=== PATIENT | female | born 1980 ===

== ENCOUNTER 2019-05-06 00:15 | Outpatient (CLI) | payer MEDICAID ==
[2019-05-06] MEDS ORDERED: TERBUTALINE 1 MG/1 ML INJ SUB-Q ONE (02:11)
--- NOTE | 2019-05-06 03:43 | Ultrasound Report ---
ULTRASOUND OBSTETRIC Indication: r/o abruption Findings: There is a single, living intrauterine cephalic presentation.. No evidence of placenta abruption or placenta previa. heart rate is 145 The ovaries are normal. There is no free fluid. Impression: Single, living intrauterine -cephalic presentation without definite evidence of placenta abr uption Signer Name: Noam Singer MD Signed: 05/06/2019 3:38 AM Workstation Name: [email or web address]
[2019-05-06 06:01] LABS: Mucus,Urine FEW /HPF
[2019-05-06 06:33] LABS: Bilirubin,Urine NEG (Negative); Blood,Urine NEG (Negative); Color,Urine Yellow (Yellow); Protein,Urine <15 mg/dL mg/dL (Negative); Urobilinogen,Urine < 2.0 mg/dL (<2.0)
== END 2019-05-06 06:49 | disposition home or self-care (01) ==
LOC: TRG 00:15
PROVIDERS: ATTEND Obstetrics & Gynecology
DX: O26.893 Other specified pregnancy related conditions, third trimester (principal); Z3A.36 36 weeks gestation of pregnancy
CPT/HCPCS: 76815; 81001; J3105

== ENCOUNTER 2019-05-16 12:24 | Outpatient (CLI) | payer MEDICAID ==
[2019-05-16] MEDS ORDERED: LACTATED RINGERS 500 ML IV ONE (12:31)
[2019-05-16 13:29] LABS: Bacteria,Urine 1+ /HPF (Negative); Bilirubin,Urine NEG (Negative); Blood,Urine NEG (Negative); Mucus,Urine 2+ /HPF
[2019-05-16 13:30] LABS: Color,Urine Yellow (Yellow)
[2019-05-16] MEDS ORDERED: LACTATED RINGERS 1,000 ML IV ONE (13:33)
[2019-05-16 13:54] LABS: Hematocrit 38.2 % (30.3-42.9); Hemoglobin 12.9 gm/dl (10.1-14.3); Mean Corpuscular HGB Conc 34 % (30-34); Mean Corpuscular Volume 93 fl (79-97); Platelet Count 204 K/mm3 (140-440); Red Blood Count 4.13 M/mm3 (3.65-5.03); Red Cell Distribution Width 14.1 % (13.2-15.2)
[2019-05-16 14:10] LABS: Alanine Aminotransferase 9 units/L (7-56); Uric Acid 5.4 mg/dL (3.5-7.6)
[2019-05-16 14:24] VITALS: BP 138/81
== END 2019-05-16 15:28 | disposition home or self-care (01) ==
LOC: TRG 12:24 → LD 14:41 → TRG 15:28
PROVIDERS: ATTEND Obstetrics & Gynecology
DX: O13.1 Gestational [pregnancy-induced] hypertension without significant proteinuria, first trimester (principal); O24.419 Gestational diabetes mellitus in pregnancy, unspecified control; O47.03 False labor before 37 completed weeks of gestation, third trimester; O09.523 Supervision of elderly multigravida, third trimester; Z3A.36 36 weeks gestation of pregnancy
CPT/HCPCS: 36415; 81001; 82565; 83615; 84450; 84460; 84550; 85027; 96360; 96361; J7120

== ENCOUNTER 2019-05-24 03:57 | Inpatient (IN) | payer MEDICAID ==
[2019-05-24] MEDS ORDERED: LACTATED RINGERS 2,000 ML ONE (04:33)
[2019-05-24] MEDS: LACTATED RINGERS 1,000 ML IV SCH ×2 (04:44→06:00)
[2019-05-24] MEDS ORDERED: METOCLOPRAMIDE 10 MG/2 ML INJ IV ONE (05:11)
[2019-05-24] MEDS ORDERED: BICITRA ORAL LIQD 30ML PO ONE (05:11)
[2019-05-24] MEDS ORDERED: FAMOTIDINE 20 MG/2 ML INJ IV ONE (05:11)
--- NOTE | 2019-05-24 05:19 | History and Physical Report ---
<JUMA HEREDIA - Last Filed: 05/24/19 05:44> History of Present Illness Date of examination: 05/24/19 Date of admission: 05/24/2019 Chief complaint: Leaking of water from vagina. History of present illness: 38 year old female presents with leaking of water since 03:50 this am today. Patient reports active movement. Patient received care at [facility] and [facility] and records are available. LMP 08/23/2018. EDC 06/09/2019 (confirmed by US). significant for the following: AMA, gestational diabetes (on Glyburide), marginal cord insertion, previous section times 2. labs are as follows: O+, antibody screen negative, rubella immune, pap negative, hepatitis B surface antigen negative, RPR nonreactive, HIV negative, gonorrhea negative, chlamydia negative, 1 hour sugar test 157, 3 hour OGTT abnormal (121, 262, 234, 195). Past History Past Medical History: other (obesity, bartholins gland abscess ) Past Surgical History: section [facility] History: denies: abnormal PAP smear, chlamydia, gonorrhea, hepatitis B, herpes, HIV, syphilis, trichomonas Family/Genetic History: diabetes Social history: , lives with family, full code. denies: smoking, alcohol abuse, prescription drug abuse, IV drug use - Obstetrical History Expected Date of Delivery: 06/09/19 Actual Gestation: 37 Week(s) 5 Day(s) : 4 Para: 2 Hx # Term Pregnancies: 2 Number of Pregnancies: 0 Spontaneous Abortions: 1 Induced : 0 Number of Living Children: 2 Medications and Allergies Allergies Allergy/AdvReac Type Severity Reaction Status Date / Time apple Allergy Swelling Verified 05/06/19 02:18 Active Meds: Active Medications Citric Acid/Sodium Citrate (Bicitra) 30 ml PO ONCE ONE Stop: 05/24/19 05:12 Famotidine (Pepcid) 20 mg IV ONCE ONE Stop: 05/24/19 05:12 Oxytocin/Sodium Chloride (Pitocin/Ns 20 Unit/1000ml Drip) 20 units in 1,000 mls @ 0 mls/hr IV TITR JOHN Lactated Ringer's (Lactated Ringers) 1,000 mls @ 2,250 mls/hr IV PREOP JOHN Stop: 05/25/19 06:27 Metoclopramide HCl (Reglan) 10 mg IV ONCE ONE Stop: 05/24/19 05:12 Review of Systems All systems: negative (leaking of water and contractions) - Vital Signs Vital signs: Vital Signs Pulse BP 80 158/90 05/24/19 04:58 05/24/19 04:58 Temp Pulse Resp BP Pulse Ox 80 158/90 05/24/19 04:58 05/24/19 04:58 - Physical Exam Abdomen: Positive: normal appearance, soft. Negative: distention, tenderness, guarding, rigidity Genitourinary (Female): Positive: normal external genitalia, normal perenium. Negative: perineal/vulvar lesions Vagina: Positive: normal moisture Uterus: Positive: enlarged (S>D). Negative: tender Anus/Rectum: Positive: normal perianal skin Extremities: Positive: normal. Negative: tenderness, edema - Obstetrical FHR: category 1 Uterine Contraction Monitor Mode: External Cervical Dilatation: 0.5 Cervical Effacement Percentage: 20 station: out of pelvis Results All other labs normal. Assessment and Plan A: at 37 weeks, 5 days gestation. Previous section times 2. Spontaneous rupture of membranes. Contractions. Gestational diabetes. Obesity. P: Admit. Continuous EFM. Spoke with Dr. Amaya re: patient. Dr. Amaya states he is coming in to perform repeat section. <DEBBIE AMAYA - Last Filed: 05/24/19 06:28> Medications and Allergies Active Meds: Active Medications Fentanyl (Sublimaze) 100 mcg IV ONCE ONE Stop: 05/24/19 06:20 Oxytocin/Sodium Chloride (Pitocin/Ns 20 Unit/1000ml Drip) 20 units in 1,000 mls @ 0 mls/hr IV TITR JOHN Lactated Ringer's (Lactated Ringers) 1,000 mls @ 2,250 mls/hr IV PREOP JOHN Stop: 05/25/19 06:27 Last Admin: 05/24/19 06:00 Dose: 2,250 mls/hr Documented by: Cefazolin Sodium (Ancef/Sterile Water 2 Gm/20 Ml) 2 gm in 20 mls @ 80 mls/hr IV PREOP NR; Protocol Stop: 05/25/19 05:59 - Vital Signs Vital signs: Vital Signs Pulse BP 80 158/90 05/24/19 04:58 05/24/19 04:58 Temp Pulse Resp BP Pulse Ox 70 149/82 97 05/24/19 06:25 05/24/19 05:53 05/24/19 06:25 Results Result Diagrams: 05/24/19 04:44 Abnormal lab results 05/24/19 Range/Units 04:44 [place] % (Auto) 7.8 H (0.0-7.3) % All other labs normal. Assessment and Plan Pt seen and consented for surgery. All questions answered.
[2019-05-24 06:00] LABS: Basophils % (Auto) 0.3 % (0.0-1.8); Eosinophils # (Auto) 0.1 K/mm3 (0.0-0.4); Eosinophils % (Auto) 0.7 % (0.0-4.3); Hematocrit 40.2 % (30.3-42.9); Hemoglobin 13.6 gm/dl (10.1-14.3); Lymphocytes # (Auto) 2.4 K/mm3 (1.2-5.4); Lymphocytes % (Auto) 29.5 % (13.4-35.0); Mean Corpuscular HGB Conc 34 % (30-34); Mean Corpuscular Volume 93 fl (79-97); Monocytes # (Auto) 0.6 K/mm3 (0.0-0.8); Monocytes % (Auto) 7.8 % (0.0-7.3); Platelet Count 197 K/mm3 (140-440); Red Blood Count 4.33 M/mm3 (3.65-5.03); Red Cell Distribution Width 14.2 % (13.2-15.2)
[2019-05-24] MEDS ORDERED: OXYTOCIN 20 UNIT/1000ML DRIP 20 UNITS/1,000 ML BAG IV SCH ×2 (06:00→09:00)
[2019-05-24] MEDS ORDERED: ceFAZolin/Water 2 GM/20 ML 2 GM/20 ML SYRINGE IV NR (06:00)
[2019-05-24] MEDS ORDERED: fentaNYL 100 MCG/2 ML INJ IV ONE (06:19)
[2019-05-24] MEDS ORDERED: DEXMEDETOMIDINE 200 MCG/2 ML VIAL IV ONE (07:19)
[2019-05-24] MEDS ORDERED: ONDANSETRON 4 MG/2 ML INJ ONE (07:19)
[2019-05-24] MEDS ORDERED: ceFAZolin/STERILE WATER 2 GM/20 ML SYRINGE IV ONE (07:40)
[2019-05-24] MEDS ORDERED: PHENYLEPHRINE/NS 1,000 MCG/10 ML SYRINGE (OR USE) IV ONE (08:04)
[2019-05-24] MEDS ORDERED: KETOROLAC 30 MG/1 ML INJ ONE (08:24)
[2019-05-24] MEDS ORDERED: NALOXONE 0.4 MG/1 ML INJ IV PRN ×2 (08:59→09:18)
[2019-05-24] MEDS ORDERED: WITCH HAZEL/ GLYCERIN PAD TP PRN (08:59)
[2019-05-24] MEDS ORDERED: LANOLIN/ZINC/DIMETHICONE (LANSINOH) 7 GM TP PRN (08:59)
[2019-05-24] MEDS ORDERED: D5W/LACTATED RINGERS 1,000 ML IV SCH (09:00)
[2019-05-24] MEDS ORDERED: MAGNESIUM HYDROXIDE (MOM) ORAL LIQD UDC PO PRN (09:02)
[2019-05-24] MEDS ORDERED: HYDROCORTISONE 25 MG RECTAL SUPP PR PRN (09:02)
[2019-05-24] MEDS ORDERED: SENNOSIDES 8.6 MG TAB PO PRN (09:02)
[2019-05-24] MEDS ORDERED: ONDANSETRON 4 MG/2 ML INJ IV PRN ×2 (09:02→09:18)
[2019-05-24] MEDS ORDERED: SIMETHICONE 80 MG CHEW TAB PO PRN (09:02)
--- NOTE | 2019-05-24 09:10 | Procedure Note ---
OB Delivery Note - Delivery Date of Delivery: 05/24/19 Surgeon: DEBBIE ADLER Estimated blood loss: other (800cc) - Section Preop diagnosis: repeat Postop diagnosis: same section procedure: repeat low transverse Disposition: PACU Complications: none Narrative: Pt with a history of 2 prior C-sections. She presents today status post premature rupture of membranes earlier this morning. Fluid was clear. As a result patient for repeat low transverse today. Findings: Normal uterus tubes and ovaries. No significant scarring except for some mild subcutaneous tissue scarring. Baby was vertex with clear fluid. No nuchal cord. Procedure: Patient taken to the operating room and prepped and draped in the usual fashion. Pfannenstiel skin incision was made over her prior incision. Incision carried down to the underlying fascia. Fascia incised and the incision was extended bilaterally. Rectus fascia dissected off the rectus muscle both superiorly and inferiorly. Peritoneum identified tented up and entered. Peritoneal incision was extended superiorly and inferiorly with good visualization of the bladder. Bladder blade was placed. Uterine incision was made and extended bilaterally. Baby was delivered in the usual vertex fashion without difficulty. Baby was bulb suctioned at the incision site and again after delivery. Delayed cord clamping was done. Cord was cut and handed off to the waiting team. Placenta was delivered manually. The uterus was exteriorized and cleared of all clots and debris. Uterus was closed with 0 Vicryl in a running locked fashion followed by second imbricating layer of 0 Vicryl. Good hemostasis noted. Uterus tubes and ovaries were returned to the abdominal cavity. Gutters were cleared of all clots and debris and the pelvis was well irrigated. Good hemostasis was noted. Urine was clear. Attention was turned the rectus fascia which is reapproximated with 0 Vicryl in a running fashion. Subcutaneous tissues reapproximated with 2-0 Vicryl in a running fashion and the skin was closed with 4-0 Vicryl in a subcuticular fashion followed by Dermabond. Procedure concluded at this point. Patient tolerated the procedure well. All instrument counts were correct. Patient taken to the recovery room in stable condition. - Infant A at 1 minute: 9 at 5 minutes: 9 Gender: Female
--- NOTE | 2019-05-24 09:17 | Anesthesia Day of Surgery ---
Anesthesia Day of Surgery - Day of Surgery Patient Examined: Yes Patient H&P Reviewed: Yes Patient is NPO: Yes
--- NOTE | 2019-05-24 09:17 | Anesthesia Consultation ---
Anesthesia Consult and Med Hx Date of service: 05/24/19 - Airway Anesthetic Teeth Evaluation: Good ROM Head & Neck: Adequate Mental/Hyoid Distance: Adequate Mallampati Class: Class II Intubation Access Assessment: Good - Pulmonary Exam CTA: Yes - Cardiac Exam Cardiac Exam: RRR - Pre-Operative Health Status ASA Pre-Surgery Classification: ASA2, Emergency Proposed Anesthetic Plan: Spinal - Pulmonary Hx Asthma: No - Cardiovascular System Hx Hypertension: No - Central Nervous System Hx Seizures: No Hx Psychiatric Problems: No - Endocrine Hx Renal Disease: No Hx Hypothyroidism: No Hx Hyperthyroidism: No - Hematic Hx Anemia: No Hx Sickle Cell Disease: No - Other Systems Hx Alcohol Use: No Hx Obesity: Yes
[2019-05-24] MEDS ORDERED: PROMETHAZINE 25 MG RECT SUPP PR PRN (09:18)
[2019-05-24] MEDS ORDERED: HYDROmorphone 1 MG/1 ML INJ IV PRN ×2 (09:18)
[2019-05-24] MEDS ORDERED: PROMETHAZINE 25 MG TAB PO PRN (09:18)
--- NOTE | 2019-05-24 09:18 | Post Anesthesia Evaluation ---
- Post Anesthesia Evaluation Patient Participated: Yes Airway Patent: Yes Stable Respiratory Function: Yes Nausea/Vomiting: No Temp > 96.8F: Yes Pain Manageable: Yes Adequeate Hydration: Yes Anesthesia Complications: No Block Receding Appropriately: Yes Patient on Ventilator: No
[2019-05-24] MEDS ORDERED: fentaNYL-BUPIV 2 MCG/ML-0.125% 200 MCG/100 ML BAG EPIDURAL SCH (10:00)
[2019-05-24] MEDS: KETOROLAC 30 MG/1 ML INJ IV PRN ×2 (14:24→20:28)
[2019-05-24 21:07] LABS: Hematocrit 32.9 % (30.3-42.9); Hemoglobin 11.2 gm/dl (10.1-14.3)
[2019-05-24] MEDS: oxyCODONE /ACETAMINOPHEN 5-325MG TAB PO PRN (23:42)
[2019-05-25] MEDS: KETOROLAC 30 MG/1 ML INJ IV PRN (01:52)
[2019-05-25] MEDS: oxyCODONE /ACETAMINOPHEN 5-325MG TAB PO PRN ×3 (05:13→17:41)
[2019-05-25] MEDS ORDERED: TETANUS,DIPH,PERTUSS(ACELL) VACCINE 0.5 ML SYRINGE IM ONE (06:00)
[2019-05-25] MEDS: IBUPROFEN 800 MG TAB PO PRN ×2 (14:23→21:37)
--- NOTE | 2019-05-25 17:10 | Progress Note ---
Assessment and Plan A: /postop day 1 S/P repeat low transverse section. P: Encouraged ambulation. Advance diet as tolerated. Subjective - Subjective Date of service: 05/25/19 Principal diagnosis: /postop day 1 S/P repeat low transverse section Interval history: /postop day 1 S/P repeat low transverse section. Doing well. Reports small amount of lochia. Voiding without difficulty, ambulating well, passing gas, tolerating a full liquid diet. Patient reports: appetite normal, voiding normally, pain well controlled, flatus, ambulating normally, no dizzy ambulation, no nauseated : doing well Objective - Vital Signs Latest vital signs: Vital Signs Temp Pulse Resp BP BP Pulse Ox 05/25/19 11:36 98.6 F 81 18 128/86 97 05/25/19 05:13 18 05/25/19 04:37 98.2 F 65 20 136/73 96 05/25/19 01:52 18 05/25/19 00:14 98.2 F 67 18 134/72 97 05/24/19 23:42 18 05/24/19 21:06 98.2 F 67 18 138/80 138/80 99 05/24/19 20:28 18 05/24/19 18:30 20 Intake and Output 05/25/19 05/25/19 05/25/19 07:59 15:59 23:59 Intake Total 120 Output Total 800 Balance -800 120 Intake: Oral 120 Output: Urine 800 Void 800 Other: Total, Intake Amount 0 Total, Output Amount 800 # Voids Void 1 # Bowel Movements 0 - Exam Cardiovascular: Present: Regular rate, Normal S1, Normal S2 Lungs: Present: Clear to auscultation Abdomen: Present: normal appearance, soft, normal bowel sounds. Absent: distention, tenderness, guarding, rigidity Uterus: Present: normal, firm, fundal height below umbilicus. Absent: bogginess, tenderness Extremities: Present: normal. Absent: tenderness, edema Incision: Present: normal, dry, intact, dressed
[2019-05-26] MEDS: oxyCODONE /ACETAMINOPHEN 5-325MG TAB PO PRN (06:03)
[2019-05-26] MEDS ORDERED: oxyCODONE /ACETAMINOPHEN 5-325MG TAB PO PRN (10:38)
--- NOTE | 2019-05-26 10:44 | Progress Note ---
Assessment and Plan - Patient Problems (1) S/P repeat low transverse Current Visit: Yes Status: Acute Plan to address problem: POD 2 - stable Continue routine postop orders Discharge to home later today Follow up at [facility] as needed or in 1 week for incision check (2) Single live Current Visit: Yes Status: Acute (3) Uncontrolled pain Current Visit: Yes Status: Acute Plan to address problem: Percocet increased from 1 to 2 tabs PO q6hr prn pain (4) Gestational diabetes mellitus, class A2 Current Visit: Yes Status: Acute Plan to address problem: Last blood glucose done 05/24/19: 84 Redular diet discontinued. ADA diet initiated Accucheck ordered, per protocol Subjective - Subjective Date of service: 05/26/19 Principal diagnosis: POD #2; s/p Repeat LTCS Interval history: see H&P, OB Delivery Procedure Note and PP/[employer]INEER Progress Note Patient reports: appetite normal, voiding normally, flatus, pain poorly controlled (pain level 9/10), ambulating normally, no dizzy ambulation, no bowel movement [place]: doing well Objective - Vital Signs Latest vital signs: Vital Signs Temp Pulse Resp BP BP Pulse Ox 05/26/19 08:50 98.8 F 64 20 140/78 05/26/19 00:15 98.4 F 61 16 136/77 99 05/25/19 11:36 98.6 F 81 18 128/86 97 Intake and Output 05/25/19 05/26/19 05/26/19 23:59 07:59 15:59 Intake Total 240 2 120 Balance 240 2 120 Intake: Oral 120 Intake, Free Water 240 2 Other: Total, Intake Amount 120 # Voids Void 1 1 1 - Exam Cardiovascular: Present: Regular rate Lungs: Present: Clear to auscultation Abdomen: Present: normal appearance, soft Vulva: both: normal Uterus: Present: normal, firm, fundal height at umbilicus Extremities: Present: normal Incision: Present: normal, dry, intact Comments: scant lochia
--- NOTE | 2019-05-26 10:56 | Discharge Summary ---
Providers - Providers Date of Admission: 05/24/19 07:20 Date of discharge: 05/26/19 Attending physician: DEBBIE ADLER Primary care physician: DEBBIE ADLER Hospitalization Reason for admission: section, IUP at term, other (PROM) Delivery: Procedure: repeat low transverse Episiotomy: none Laceration: none Incision: normal, dry, intact Other procedures: none complications: none Discharge diagnosis: IUP at term delivered baby: female Hospital course: Uncomplicated Condition at discharge: Stable Disposition: ME-01 TO HOME OR SELFCARE - Discharge Diagnoses (1) S/P repeat low transverse Status: Acute (2) Single live Status: Acute (3) Uncontrolled pain Status: Resolved (4) Gestational diabetes mellitus, class A2 Status: Acute Plan - Discharge Medications Prescriptions: Ibuprofen [Motrin 800 MG tab] 800 mg PO Q6H PRN #30 tablet PRN Reason: Pain, Mild (1-3) - Provider Discharge Summary Activity: routine, no sex for 6 weeks, no heavy lifting 4 weeks, no strenuous exercise Diet: routine Instructions: routine Additional instructions: [] Smoking cessation referral if applicable(refer to patient education folder for contact #) [] Refer to [facility] Booklet Call your doctor immediately for: * Fever > 100.5 * Heavy vaginal bleeding ( >1 pad per hour) * Severe persistent headache * Shortness of breath * Reddened, hot, painful area to leg or breast * Drainage or odor from incision. * Keep incision clean and dry at all times and follow doctor's instructions regarding bathing/showering - Follow up plan Follow up: DEBBIE ADLER MD [Primary Care Provider] - 7 Days (Follow up at [facility] as needed or in 1 week for incision check)
[2019-05-26 12:45] VITALS: BP 142/76
== END 2019-05-26 15:05 | disposition home or self-care (01) | DRG 766 ==
LOC: TRG 03:57 → APU 07:20 → OB 11:20
PROVIDERS: ADMIT Obstetrics & Gynecology; ATTEND Obstetrics & Gynecology
PROC: 10D00Z1 Extraction of Products of Conception, Low, Open Approach (ICD-10-PCS; principal; 2019-05-24)
PROC: 3E0234Z Introduction of Serum, Toxoid and Vaccine into Muscle, Percutaneous Approach (ICD-10-PCS; 2019-05-25)
DX: O34.211 Maternal care for low transverse scar from previous cesarean delivery (principal); O99.214 Obesity complicating childbirth; E66.9 Obesity, unspecified; O24.429 Gestational diabetes mellitus in childbirth, unspecified control; Z3A.37 37 weeks gestation of pregnancy; Z37.0 Single live birth; Z91.018 Allergy to other foods; Z23 Encounter for immunization; Z83.3 Family history of diabetes mellitus
CPT/HCPCS: 36415; 82962; 85014; 85018; 85025; 86850; 86900; 86901; 90471; 90715; G0378; C1765; J0690; J1170; J1885; J2370; J2405; J2590; J2765; J3010; J3490; J7120